=== PATIENT | female | born 1945 | race Caucasian/White ===

== ENCOUNTER 2016-07-30 10:03 | Emergency (ER) | payer OTHER ==
[~2016-07-30] VITALS: Ht 157.5 cm; Wt 77.1 kg
--- NOTE | 2016-07-30 10:34 | ED GI/GU/ABDOMINAL COMPLAINT ---
History of Present Illness General Chief Complaint: Abdominal Pain/Flank Pain Stated Complaint: ABD PAIN, HX OF DIVERTICULITIS Source: patient Exam Limitations: no limitations Vital Signs & Intake/Output Vital Signs & Intake/Output Vital Signs Date Time Temp Pulse Resp B/P Pulse O2 O2 Flow FiO2 Ox Delivery Rate 07/30 1218 98.4 77 18 133/63 99 07/30 1048 Room Air Room Air 07/30 1009 98.3 96 16 155/74 100 Room Air ED Intake and Output 07/31 0000 07/30 1200 Intake Total 0 Output Total Balance 0 Intake, Oral 0 Patient 170 lb Weight Allergies Coded Allergies: MDX - Erythromycin (Erythromycin) (UNKNOWN 04/22/13) MDX - SULFA (sulfonamide) (SULFA (sulfonamide)) (UNKNOWN 04/22/13) SULFA PER ANTIBIOTIC ORDER SHEET OF 04/22/13 - SJS MDX - Sulfonamide (UNKNOWN 04/22/13) Reconcile Medications Amoxicillin/Potassium Clav (Augmentin 875-125 Tablet) 875 MG-125 MG TABLET 1 TAB PO BID DIVERTICULITIS Triage Note: PT TO ED FOR L SIDED ABD CRAMPING, REPORTING SHE HAS A HX OF DIVERTICULITIS AND "I KNOW ITS THAT, I NORMALLY WOULD SEE MY GI DOCTOR BUT SINCE ITS MONDAY I JUST CAME HERE" PT DENIES NAUSEA, VOMITING, DIARRHEA. Triage Nurses Notes Reviewed? yes ? n Is pt currently ? No HPI: 71-year-old female arrived to triage to room 9 for evaluation of left lower quadrant abdominal pain that started on , progressively getting worse. She reports the pain is achy, dull and sometimes sharp mild to moderate but very intermittent. She denies nausea vomiting, diarrhea, constipation, fever or chills. She did have one episode of chills on when pain started but no recurrent episode. She has a history of diverticulitis 7 years ago. She is refusing pain medication at this time. She denies any urinary symptoms. (ALIE PARRA APRN) Past History Travel History Traveled to [place] past 21 day No Medical History Any Pertinent Medical History? see below for history Neurological: NONE EENT: NONE Cardiovascular: hypertension Respiratory: NONE Gastrointestinal: DIVERTICULITIS Hepatic: NONE Renal: NONE Musculoskeletal: NONE Psychiatric: NONE Endocrine: diabetes Blood Disorders: NONE Cancer(s): BREAST CA History of MRSA: No History of VRE: No History of CDIFF: No Influenza Vaccine: 04/05/13 Surgical History Surgical History: cholecystectomy, hysterectomy, lumpectomy (left breast) Psychosocial History Who do you live with Spouse Services at Home None What is your primary language Norwegian Tobacco Use: Never used ETOH Use: denies use Illicit Drug Use: denies illicit drug use Family History Family History, If Any: DAUGHTER FH: diabetes mellitus Hx Contributory? No (ALIE PARRA APRN) Review of Systems Review of Systems Constitutional: Reports: no symptoms. EENTM: Reports: no symptoms. Respiratory: Reports: no symptoms. Cardiovascular: Reports: no symptoms. GI: Reports: abdominal pain. Genitourinary: Reports: no symptoms. Musculoskeletal: Reports: no symptoms. Skin: Reports: no symptoms. Neurological/Psychological: Reports: no symptoms. Hematologic/Endocrine: Reports: no symptoms. Immunologic/Allergic: Reports: no symptoms. All Other Systems: Reviewed and Negative (ALIE PARRA APRN) Physical Exam Physical Exam General Appearance: well developed/nourished, no apparent distress, alert, awake , comfortable Head: atraumatic, normal appearance Eyes: Bilateral: normal appearance, PERRL, EOMI. Ears, Nose, Throat, Mouth: hearing grossly normal, moist mucous membrane Neck: normal inspection, supple, full range of motion, normal alignment Respiratory: normal breath sounds, chest non-tender, no respiratory distress Cardiovascular: regular rate/rhythm Gastrointestinal: normal bowel sounds, soft, non-tender Back: normal inspection, normal range of motion, vertebral tenderness Extremities: normal range of motion, evidence of injury, pelvis stable Neurologic/Psych: no motor/sensory deficits, awake, alert, oriented x 3, normal gait, normal mood/affect Core Measures ACS in differential dx? No Severe Sepsis Present: No Septic Shock Present: No (ALIE PARRA APRN) Progress Differential Diagnosis: diverticulitis Plan of Care: Orders Procedure Date/time Status URINALYSIS 07/30 1014 Complete LIPASE 07/30 1014 Complete COMPREHENSIVE METABOLIC PANEL 07/30 1014 Complete CBC WITHOUT DIFFERENTIAL 07/30 1014 Complete AMYLASE 07/30 1014 Complete Laboratory Tests 07/30/16 1100: Urine Color STRAW, Urine Clarity CLEAR, Urine pH 6.5, Ur Specific [place] <= 1.005, Urine Protein NEG, Urine Ketones NEG, Urine Nitrite NEG, Urine Bilirubin NEG, Urine Urobilinogen 0.2, Ur Leukocyte Esterase TRACE H, Ur Microscopic SEDIMENT EXAMINED, Urine RBC RARE, Urine WBC RARE, Ur Epithelial Cells FEW, Urine Hemoglobin SMALL H, Urine Glucose NEG 07/30/16 1043: CBC w Diff NO MAN DIFF REQ, RBC 4.49, MCV 89.2, MCH 29.4, RDW 13.4, MPV 9.5, Gran % 78.8 H, Lymphocytes % 13.1 L, Monocytes % 7.3, Eosinophils % 0.5, Basophils % 0.3, Absolute Granulocytes 8.4 H, Absolute Lymphocytes 1.4, Absolute Monocytes 0.8 H, Absolute Eosinophils 0.1, Absolute Basophils 0, PUBS MCHC 33.0 07/30/16 1014: Anion Gap 10, Estimated GFR > 60, BUN/Creatinine Ratio 17.1, Glucose 123 H, Calcium 9.4, Total Bilirubin 0.8, AST 20, ALT 22, Alkaline Phosphatase 59, Total Protein 7.3, Albumin 4.1, Globulin 3.2, Albumin/Globulin Ratio 1.3, Amylase < 30 L, Lipase 66 Initial ED EKG: none Comments: PATIENT: PREETI KELLY PRESENT AGE: 71 PATIENT ACCOUNT NO: [id number] : 45 LOCATION: [facility] ORDERING PHYSICIAN: JUSTUS OSORIO MD SERVICE DATE: 07/30/16 EXAM TYPE: CAT - CT ABD & PELVIS W IV CONTRAST EXAMINATION: CT ABDOMEN AND PELVIS WITH CONTRAST CLINICAL INFORMATION: Left lower quadrant pain COMPARISON: CTA chest 03/23/2010. TECHNIQUE: Multidetector volumetric imaging was performed of the abdomen and pelvis before and after the IV administration of 92 mL of Omnipaque 300 intravenous contrast. Sagittal and coronal reformatted images were obtained on the technologist's workstation. DLP: 480 mGy-cm FINDINGS: LUNG BASES: There is a right basilar patchy atelectasis. The heart size is normal. LIVER, GALLBLADDER, AND BILIARY TREE: The liver is normal in size, shape, and attenuation. There is a 1.4 cm hypodense lesion segment 2B left lobe. No additional lesions seen.. The gallbladder has been surgically removed. PANCREAS: Unremarkable. SPLEEN: Unremarkable. ADRENAL GLANDS: Unremarkable. KIDNEYS AND URETERS: The kidneys are normal in size, shape, and attenuation. No hydronephrosis, hydroureter, or calculi seen. No perinephric stranding. BLADDER: Unremarkable. GASTROINTESTINAL TRACT: There is moderate stool seen throughout the colon without significant distention. The small bowel loops our normal caliber. There are surgical sutures along the right mid lateral pelvis from previous intervention. The appendix is normal caliber. ABDOMINAL WALL: A small umbilical hernia containing fat is noted. LYMPH NODES: Normal. VASCULAR: Unremarkable. PELVIC VISCERA: There is mild thickening involving proximal sigmoid colon with pericolic fat stranding and few scattered diverticuli suggestive of diverticulitis with underlying diverticulosis. There is no free perforation or abscess seen at this time. There is no free fluid. OSSEOUS STRUCTURES: There are degenerative disc changes L5-S1, L4-L5 and L3-L4 disc levels. IMPRESSION: Sigmoid diverticulosis without diverticulitis. Stable 1.4 cm lesion left lobe of liver when compared to CTA chest. DICTATED BY: HA GLYNN,ELIAN DATE/TIME DICTATED:07/30/161240 TOUR PRODUCTION SUPERVISOR:IRAJ DATE/TIME TRANSCRIBED:07/30/161240 CONFIDENTIAL, DO NOT COPY WITHOUT APPROPRIATE AUTHORIZATION. <Electronically signed in Other Vendor System> SIGNED BY: HA GLYNN,ELIAN 07/30/16 1253 1:16 PM explained CAT scan results to patient and gave her a prescription for Augmentin to take for 10 days and to follow up with GI. I called CAT scan to adjust the reading impression that says diverticulosis without diverticulitis. (ALIE PARRA APRN) Departure Departure Time of Disposition: 1306 Disposition: HOME OR SELF CARE Condition: Stable Clinical Impression Primary Impression: Sigmoid diverticulitis Referrals: SAMRA GLYNN,LAYA Chilel (PCP/Family) ELOISA THOMPSON MD Additional Instructions: Preeti please follow-up with Dr. Lemuel Thompson this week. Augmentin 875 mg twice a day for 10 days. Departure Forms: Customer Survey General Discharge Information Prescriptions: Current Visit Scripts Amoxicillin/Potassium Clav (Augmentin 875-125 Tablet) 1 TAB PO BID #20 TAB (ALIE PARRA APRN) PA/STEAM HAND Co-Sign Statement Statement: ED Attending supervision documentation- [X] I saw and evaluated the patient. I have also reviewed all the pertinent lab results and diagnostic results. I agree with the findings and the plan of care as documented in the PA's/STEAM HAND's documentation. [X] I have reviewed the ED Record and agree with the PA's/STEAM HAND's documentation. [] Additions or exceptions (if any) to the PAs/STEAM HAND's note and plan are summarized below: [] (JO GLYNN,JUSTUS Mccabe)
[2016-07-30 11:18] LABS: ABSOLUTE BASOPHIL COUNT 0 /CUMM (0.0-0.2); ABSOLUTE EOSINOPHIL COUNT 0.1 /CUMM (0.0-0.7); ABSOLUTE GRANULOCYTE CT 8.4 /CUMM (1.4-6.5); ABSOLUTE LYMPH COUNT 1.4 /CUMM (1.2-3.4); ABSOLUTE MONOCYTE COUNT 0.8 /CUMM (0.10-0.60); BASOPHIL % 0.3 % (0.0-2.0); EOSINOPHIL % 0.5 % (0-5); GRANULOCYTE % 78.8 % (42.2-75.2); MEAN CORPUSCULAR HGB 29.4 PG (27.0-31.0); MEAN CORPUSCULAR VOLUME 89.2 FL (81.0-99.0); MEAN PLATELET VOLUME 9.5 FL (7.4-10.4); PLATELET COUNT 201 /CUMM (130-400); RBC DISTRIBUTION WIDTH 13.4 % (11.5-14.5); RED BLOOD CELL CT 4.49 /CUMM (4.20-5.40); WHITE BLOOD CELL COUNT 10.7 /CUMM (4.8-10.8)
[2016-07-30 12:18] VITALS: BP 133/63
--- NOTE | 2016-07-30 12:53 | CT SCAN REPORT ---
EXAMINATION: CT ABDOMEN AND PELVIS WITH CONTRAST CLINICAL INFORMATION: Left lower quadrant pain COMPARISON: CTA chest 03/23/2010. TECHNIQUE: Multidetector volumetric imaging was performed of the abdomen and pelvis before and after the IV administration of 92 mL of Omnipaque 300 intravenous contrast. Sagittal and coronal reformatted images were obtained on the technologist's workstation. DLP: 480 mGy-cm FINDINGS: LUNG BASES: There is a right basilar patchy atelectasis. The heart size is normal. LIVER, GALLBLADDER, AND BILIARY TREE: The liver is normal in size, shape, and attenuation. There is a 1.4 cm hypodense lesion segment 2B left lobe. No additional lesions seen.. The gallbladder has been surgically removed. PANCREAS: Unremarkable. SPLEEN: Unremarkable. ADRENAL GLANDS: Unremarkable. KIDNEYS AND URETERS: The kidneys are normal in size, shape, and attenuation. No hydronephrosis, hydroureter, or calculi seen. No perinephric stranding. BLADDER: Unremarkable. GASTROINTESTINAL TRACT: There is moderate stool seen throughout the colon without significant distention. The small bowel loops our normal caliber. There are surgical sutures along the right mid lateral pelvis from previous intervention. The appendix is normal caliber. ABDOMINAL WALL: A small umbilical hernia containing fat is noted. LYMPH NODES: Normal. VASCULAR: Unremarkable. PELVIC VISCERA: There is mild thickening involving proximal sigmoid colon with pericolic fat stranding and few scattered diverticuli suggestive of diverticulitis with underlying diverticulosis. There is no free perforation or abscess seen at this time. There is no free fluid. OSSEOUS STRUCTURES: There are degenerative disc changes L5-S1, L4-L5 and L3-L4 disc levels. IMPRESSION: Sigmoid diverticulosis without diverticulitis. Stable 1.4 cm lesion left lobe of liver when compared to CTA chest.
[2016-07-30] MEDS ORDERED: AUGMENTIN 875-1 EACH PO (13:09)
== END 2016-07-30 13:21 ==
LOC: ERH 10:03
PROVIDERS: Emergency Medicine
DX: K57.32 Diverticulitis of large intestine without perforation or abscess without bleeding (principal)
CPT/HCPCS: 74177; 81001